=== PATIENT | male | born 1990 | race Caucasian/White ===

== ENCOUNTER 2017-01-30 13:21 | Emergency (ER) | payer OTHER ==
[2017-01-30 13:44] VITALS: RESP 18
[2017-01-30] MEDS ORDERED: Sodium Chloride 0.9% 1,000 ML IV ONE (14:04)
[2017-01-30 14:07] LABS: BASO % 0.3 % (0.0-2.0); EOS % 0.3 % (0.0-4.0); HEMATOCRIT 46.9 % (35.0-51.0); LYMPH # 0.5 K/uL (1.0-4.3); LYMPH % 3.9 % (20.0-40.0); MEAN CORPUSCULAR HEMOGLOBIN 27.2 pg (27.0-31.0); MEAN CORPUSCULAR HGB CONC 32.7 g/dL (33.0-37.0); MEAN PLATELET VOLUME 10.1 fL (7.2-11.7); MONO # 0.9 K/uL (0.0-0.8); MONO % 6.4 % (0.0-10.0); RED CELL DISTRIBUTION WIDTH 13.1 % (11.5-14.5); WHITE BLOOD COUNT 13.7 K/uL (4.8-10.8)
[2017-01-30] MEDS ORDERED: Morphine 4 MG/ML VIAL ONE (14:13)
[2017-01-30] MEDS ORDERED: Sodium Chloride 0.9% 1,000 ML ONE (14:14)
[2017-01-30 14:17] LABS: PLATELET COUNT 108 K/uL (130-400)
[2017-01-30 14:22] LABS: CHLORIDE 100 mmol/L (98-107); SODIUM 137 mmol/L (132-148)
[2017-01-30 14:23] LABS: POTASSIUM 4.2 mmol/L (3.6-5.2)
[2017-01-30 14:25] LABS: ALB/GLOB RATIO 1.4 (1.0-2.1); ALKALINE PHOSPHATASE 96 U/L (38-126); AST/SGOT 306 U/L (17-59); BILIRUBIN,TOTAL 1.5 mg/dL (0.2-1.3); BLOOD UREA NITROGEN 18 mg/dL (9-20); CARBON DIOXIDE 28 mmol/L (22-30); GFR AFRICAN-AMERICAN > 60; TOTAL PROTEIN 7.9 g/dL (6.3-8.3)
[2017-01-30 14:26] LABS: ALT/SGPT 175 U/L (21-72); CALCIUM 9.5 mg/dl (8.6-10.4); GLUCOSE,RANDOM 133 mg/dL (75-110)
[2017-01-30] MEDS ORDERED: Belladonna-Phenobarbital PO STA (14:59)
[2017-01-30] MEDS ORDERED: Alum-Mag Hydrox-Simethicone Susp (30 mL) PO STA (14:59)
[2017-01-30] MEDS ORDERED: Alum-Mag Hydrox-Simethicone Susp (30 mL) ONE (15:17)
[2017-01-30] MEDS ORDERED: Belladonna-Phenobarbital ONE (15:17)
[2017-01-30 15:29] LABS: EOSINOPHIL 1 % (0-4); NEUTROPHIL 85 % (50-75); TOTAL CELLS COUNTED 100
[2017-01-30 15:37] LABS: RBC URINE < 1 /hpf (0-3); URINE BILIRUBIN NEGATIVE (NEGATIVE); URINE BLOOD NEGATIVE (NEGATIVE); URINE COLOR Yellow (YELLOW); URINE GLUCOSE (UA) NORMAL (Normal); URINE KETONE NEGATIVE (NEGATIVE); URINE LEUKOCYTE ESTERASE NEG Leu/uL (Negative); URINE PROTEIN NEGATIVE (NEGATIVE); URINE UROBILINOGEN NORMAL mg/dL (0.2-1.0); WBC URINE < 1 /hpf (0-5)
--- NOTE | 2017-01-30 15:38 | US ---
Right upper quadrant abdominal ultrasound History: Right upper quadrant abdominal pain Comparison: None available. Technique: Real-time sonography was performed through the right upper quadrant of the abdomen. Findings: Liver: 16.5 centimeters in length. Mild increased echogenicity. Gallbladder: Somewhat contracted, limiting evaluation. No calculi or sludge. Wall thickness of 1 millimeter. Negative sonographic Olivo's sign. Common bile duct measures 5 millimeters, mildly prominent. Visualized portions of the pancreas are preserved. Pancreatic tail not well visualized. Visualized aorta and IVC are grossly preserved. Right kidney: 10.2 x 3.9 x 3.9 centimeters. No calculi or hydronephrosis. Impression: Gallbladder somewhat contracted, limiting evaluation. Mild prominence of the common bile duct measuring up to 5 millimeters. Mild increased echogenicity of the hepatic parenchyma which may represent mild hepatic parenchymal disease versus mild fatty infiltration. Clinical correlation. Pancreatic tail not well visualized.
--- NOTE | 2017-01-30 15:44 | C.PDOC ---
History Of Present Illness 26 y/o male presents to the ED for evaluation of epigastric abdominal pain which began this morning. Patient also reports nausea and back pain. Patient states he has been fasting for the past month; he at a full meal last night after which he reports feeling slightly bloated. He denies fever, GI bleeding, dysuria, back pain, chills, vomiting, diarrhea, sick contacts or recent travel. Patient denies PMHx and PSHx. Time Seen by Provider: 01/30/17 13:48 Chief Complaint (Nursing): Abdominal Pain History Per: Patient History/Exam Limitations: no limitations Onset/Duration Of Symptoms: Hrs Current Symptoms Are (Timing): Still Present Location Of Pain/Discomfort: Epigastric Quality Of Discomfort: "Pain" Associated Symptoms: Nausea, Back Pain. denies: Fever, Chills, Vomiting, Diarrhea Recent travel outside of the [place]: No Additional History Per: Patient Past Medical History Reviewed: Historical Data, Nursing Documentation, Vital Signs Vital Signs: Last Vital Signs Temp 97.5 F L 01/30/17 17:38 Pulse 52 L 01/30/17 17:38 Resp 18 01/30/17 17:38 BP 94/53 L 01/30/17 17:38 Pulse Ox 100 01/30/17 21:43 - Medical History PMH: No Chronic Diseases Surgical History: No Surg Hx Family History: States: Unknown Family Hx - Social History Hx Alcohol Use: No Hx Substance Use: No Review Of Systems Except As Marked, All Systems Reviewed And Found Negative. Constitutional: Negative for: Fever, Chills Gastrointestinal: Positive for: Nausea, Abdominal Pain (epigastric ). Negative for: Vomiting, Diarrhea Musculoskeletal: Positive for: Back Pain Physical Exam - Physical Exam Appears: Non-toxic, No Acute Distress Skin: Normal Color, Warm, Dry, No Rash Head: Atraumatic, Normacephalic Eye(s): bilateral: Normal Inspection, PERRL, EOMI Oral Mucosa: Moist Neck: Normal ROM, Supple Chest: Symmetrical Cardiovascular: Rhythm Regular, No Friction Rub, No Murmur, No JVD Respiratory: Normal Breath Sounds Gastrointestinal/Abdominal: Bowel Sounds (active), Soft, Tenderness (epigastric ), No Guarding, No Rebound Back: Normal Inspection, No Vertebral Tenderness, No Paraspinal Tenderness Extremity: Normal ROM, Capillary Refill (less than 2 seconds ) Neurological/Psych: Oriented x3, Normal Speech, Normal Cognition, Normal Motor Gait: Steady ED Course And Treatment - Laboratory Results Result Diagrams: 01/30/17 14:03 01/30/17 14:03 O2 Sat by Pulse Oximetry: 100 (on RA) Pulse Ox Interpretation: Normal - Other Rad CXR X-Ray: Interpreted by Me, Viewed By Me, Read By Radiologist Interpretation: Accession No. : [id number]. Patient Name / ID : TERESITA RITTER / [id number]. Exam Date : 01/30/2017 15:49:40 ( Approved ). Study Comment : Sex / Age : M / 26Y. Creator : Norbert Christensen MD. Dictator : Norbert Christensen MD. 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 Approver2 : Report Date : 01/30/2017 16:29:04. My Comment : . HISTORY: abd pain. COMPARISON : No prior. FINDINGS: LUNGS: No active pulmonary disease. PLEURA: No significant pleural effusion identified, no pneumothorax apparent. CARDIOVASCULAR: Normal. OSSEOUS STRUCTURES: No significant abnormalities. VISUALIZED UPPER ABDOMEN: Normal. OTHER FINDINGS: None. IMPRESSION: No active disease. - CT Scan/US CT A/P Other Rad Studies (CT/US): Interpreted By Me, Read By Radiologist, Radiology Report Reviewed CT/US Interpretation: CT Scan. . . ABD PELVIS W/O PO OR IV CONT Exam Date: 01/30/17. . This imaging exam was performed at [facility]. EXAM: CT Abdomen and Pelvis Without Intravenous Contrast. . CLINICAL HISTORY: 26 years old, male; Pain; Other: Epigastric pain; Patient HX: No prior;. Additional info: Epigastric abd pain. . TECHNIQUE: Axial computed tomography images of the abdomen and pelvis without. intravenous contrast. This CT exam was performed using one or more of the. following dose reduction techniques: automated exposure control, adjustment of. the mA and/ or kV according to patient size, and/or use of iterative. reconstruction technique. Coronal and sagittal reformatted images were created and reviewed. . EXAM DATE/TIME: Exam ordered 01/30/2017 3:35 PM. . COMPARISON: No relevant prior studies available. . FINDINGS: Lower thorax: No acute findings. . ABDOMEN: Liver: Unremarkable. Gallbladder and bile ducts: Unremarkable. No calcified stones. No ductal. dilation. Pancreas: Unremarkable. No ductal dilation. Spleen: Unremarkable. No splenomegaly. Adrenals: Unremarkable. No mass. Kidneys and ureters: Unremarkable. No obstructing stones. No. hydronephrosis. Stomach and bowel: Moderate amount of stool is seen in the colon. No. obstruction. No mucosal thickening. Appendix: No findings to suggest acute appendicitis. . PELVIS: Bladder: Unremarkable. No stones. Reproductive: Unremarkable as visualized. . ABDOMEN and PELVIS: Intraperitoneal space: Unremarkable. No free air. No significant fluid. collection. Bones/joints: There is sacralization of the fifth lumbar vertebral body. No. acute fracture. No dislocation. Soft tissues: Unremarkable. Vasculature: Unremarkable. No abdominal aortic aneurysm. Lymph nodes: Unremarkable. No enlarged lymph nodes. . IMPRESSION : No acute findings. US Abdomen Other Rad Studies (CT/US): Interpreted By Me, Read By Radiologist, Radiology Report Reviewed CT/US Interpretation: Accession No. : [id number]. Patient Name / ID : TEERSITA ALI / [id number]. Exam Date : 01/30/2017 14:34:13 ( Approved ). Study Comment : Sex / Age : M / 26Y. Creator : Gonzalo Palmer MD. Dictator : Gonzalo Palmer MD. Poultry Feed Supervisor : [employer]ship : Gonzalo Palmer MD. Approver2 : Report Date : 01/30/2017 15:36:58. My Comment : . Right upper quadrant abdominal ultrasound. History: Right upper quadrant abdominal pain. Comparison : None available. Technique: Real-time sonography was performed through the right upper quadrant of the abdomen. Findings: Liver: 16.5 centimeters in length. Mild increased echogenicity. Gallbladder: Somewhat contracted, limiting evaluation. No calculi or sludge. Wall thickness of 1 millimeter. Negative sonographic Olivo's sign. Common bile duct measures 5 millimeters, mildly prominent. Visualized portions of the pancreas are preserved. Pancreatic tail not well visualized. Visualized aorta and IVC are grossly preserved. Right kidney: 10.2 x 3.9 x 3.9 centimeters. No calculi or hydronephrosis. Impression: Gallbladder somewhat contracted, limiting evaluation. Mild prominence of the common bile duct measuring up to 5 millimeters. Mild increased echogenicity of the hepatic parenchyma which may represent mild hepatic parenchymal disease versus mild fatty infiltration. Clinical correlation. Pancreatic tail not well visualized. Reassessment Condition: Improved Medical Decision Making Medical Decision Making: Plan: * CT A/P * CXR * Abdomen XR * labs * PO * Maalox PO * Morphine IV * Pepcid IV * Toradol IV * Zofran IV * IV FLuids * reassess and disposition Progress: CT A/P, CXR, Abdomen XR, and labs ordered and reviewed. Pt received PO , Maalox PO, Morphine IV, Pepcid IV, Toradol IV, Zofran IV, and IV Fluids. On reassessment, patient is resting comfortably, showing no signs of distress, and reports an improvement in his symptoms. Patient is stable for discharge and is advised to follow up with his PMD within 1-2 days for further evaluation. Disposition - Disposition Referrals: [facility] [Outside] Disposition: HOME/ ROUTINE Disposition Time: 18:16 Condition: GOOD Additional Instructions: Follow up with the medical doctor within 1-2 days. Return if worsened. 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 - Scribe Statement The provider has reviewed the documentation as recorded by the Scribe (Kandy Stark) All medical record entries made by the Scribe were at my direction and personally dictated by me. I have reviewed the chart and agree that the record accurately reflects my personal performance of the history, physical exam, medical decision making, and the department course for this patient. I have also personally directed, reviewed, and agree with the discharge instructions and disposition.
--- NOTE | 2017-01-30 16:31 | RAD ---
HISTORY: abd pain COMPARISON: No prior. FINDINGS: LUNGS: No active pulmonary disease. PLEURA: No significant pleural effusion identified, no pneumothorax apparent. CARDIOVASCULAR: Normal. OSSEOUS STRUCTURES: No significant abnormalities. VISUALIZED UPPER ABDOMEN: Normal. OTHER FINDINGS: None. IMPRESSION: No active disease.
--- NOTE | 2017-01-30 17:22 | CT ---
EXAM: CT Abdomen and Pelvis Without Intravenous Contrast CLINICAL HISTORY: 26 years old, male; Pain; Other: Epigastric pain; Patient HX: No prior; Additional info: Epigastric abd pain TECHNIQUE: Axial computed tomography images of the abdomen and pelvis without intravenous contrast. This CT exam was performed using one or more of the following dose reduction techniques: automated exposure control, adjustment of the mA and/or kV according to patient size, and/or use of iterative reconstruction technique. Coronal and sagittal reformatted images were created and reviewed. EXAM DATE/TIME: Exam ordered 01/30/2017 3:35 PM COMPARISON: No relevant prior studies available. FINDINGS: Lower thorax: No acute findings. ABDOMEN: Liver: Unremarkable. Gallbladder and bile ducts: Unremarkable. No calcified stones. No ductal dilation. Pancreas: Unremarkable. No ductal dilation. Spleen: Unremarkable. No splenomegaly. Adrenals: Unremarkable. No mass. Kidneys and ureters: Unremarkable. No obstructing stones. No hydronephrosis. Stomach and bowel: Moderate amount of stool is seen in the colon. No obstruction. No mucosal thickening. Appendix: No findings to suggest acute appendicitis. PELVIS: Bladder: Unremarkable. No stones. Reproductive: Unremarkable as visualized. ABDOMEN and PELVIS: Intraperitoneal space: Unremarkable. No free air. No significant fluid collection. Bones/joints: There is sacralization of the fifth lumbar vertebral body. No acute fracture. No dislocation. Soft tissues: Unremarkable. Vasculature: Unremarkable. No abdominal aortic aneurysm. Lymph nodes: Unremarkable. No enlarged lymph nodes. IMPRESSION: No acute findings.
[2017-01-30 17:39] VITALS: BP 94/53; PULSE 52; TEMP 97.5
[2017-01-30 18:18] VITALS: O2SAT 100
== END 2017-01-30 18:29 | disposition home or self-care (01) ==
LOC: C.ER 13:21
DX: R10.13 Epigastric pain (principal)
CPT/HCPCS: 71010; 74176; 76705; 80053; 81001; 83690; 85025; 96361; 96374; 96375; 99285; J1885; J2270; J2405; J7040